=== PATIENT | female | born 1970 | race Caucasian/White ===

== ENCOUNTER → 2017-02-15 | Outpatient (CLI) | payer BC ==
[~2017-02-15] MED LIST: ASPIRIN E.C. 8181 MG PO; CEPHALEXIN500 M1 PO; CIPRO 500MG TA500 MG PO; KLONOPIN PO; LASIX 20MG TABL20 MG PO; NEXIUM 20MG20 MG PO; NICODERM C21 MG/PATC TD; NO HOME MEDICATIONS; NORCO 325 MG-51 TAB PO; NORCO 325 MG-7.1 TAB PO; NORVASC 10MG10 MG PO; PERCOCET 325 MG1 TA2 PO; PHENERGAN 25 TA25 MG PO; TOPIRAMATE; TRILEPTAL; VENTOLIN0.09 MG IH; WELLBUTRIN PO; ZITHROMAX TRI-500 MG PO; ZITHROMAX Z PA250 MG PO; ZOFRAN 4MG T4 MG/TAB PO; [UNRECOGNIZED DRUG - REMARK]; [UNRECOGNIZED DRUG - REMARK]
== END ==
LOC: COL.VAS 14:41
DX: I36.1 Nonrheumatic tricuspid (valve) insufficiency (principal); I51.7 Cardiomegaly

== ENCOUNTER 2018-08-12 08:09 | Emergency (ER) | payer MEDICAID ==
[~2018-08-12] VITALS: Ht 167.6 cm; Wt 75.0 kg
[2018-08-12 08:15] VITALS: TEMP 98.6
[2018-08-12 08:38] LABS: BASO # 0.1 (0.0-0.2); BASO % 0.5 % (0.0-2.0); EOS # 0.1 (0.0-0.7); EOS % 0.6 % (0-4.0); GRAN # 8.6 (1.4-6.5); GRAN % 74.4 % (42.2-75.2); HEMATOCRIT 40.8 % (37.0-47.0); HEMOGLOBIN 13.8 g/dl (12.5-16.0); LYMPH # 2.1 (1.2-3.4); LYMPH % 18.5 % (20.0-51.0); MEAN CELL VOLUME 99 fl (80.0-100.0); MEAN CORPUSCULAR HEMOGLOBIN 33 pg (27.0-31.0); MEAN CORPUSCULAR HGB CONC 34 g/dl (33.0-37.0); MEAN PLATELET VOLUME 11.7 fl (7.4-10.4); MONO # 0.7 (0.1-0.6); MONO % 5.7 % (1.7-9.3); PLATELET COUNT 190 K/mm3 (130-400); RED BLOOD COUNT 4.13 M/mm3 (4.10-5.30); REDCELL DISTRIBUTION WIDTH-CV 13.8 % (11.5-14.5)
[2018-08-12] MEDS ORDERED: LETAIRIS10 MG PO (08:40)
[2018-08-12] MEDS ORDERED: PRIL40 PO (08:40)
[2018-08-12] MEDS ORDERED: ADCIRCA20 MG PO (08:41)
[2018-08-12 08:42] LABS: PROTHROMBIN TIME 10.8 SECONDS (9.7-12.8)
[2018-08-12 08:45] LABS: PARTIAL THROMBOPLASTIN TIME 24.2 SECONDS (26.0-37.0)
[2018-08-12 10:15] VITALS: BP 103/62; PULSE 87
[2018-08-12 10:15] LABS: ALANINE AMINOTRANSFERASE 20 U/L (9-52); ALBUMIN 3.8 gm/dL (3.5-5.0); ALKALINE PHOSPHATASE 79 U/L (50-136); ANION GAP 3 mmol/L (7-16); AST,SGOT 25 U/L (15-37); BILIRUBIN,TOTAL 0.8 mg/dL (0.0-1.0); BLOOD UREA NITROGEN 14 mg/dL (7-17); CALCIUM 8.8 mg/dL (8.4-10.2); CARBON DIOXIDE 27 mmol/L (22-30); CHLORIDE 108 mmol/L (98-107); CREATININE, serum 0.71 mg/dL (0.52-1.25); GLUCOSE 95 mg/dL (74-106); SODIUM 139 mmol/L (137-145); TOTAL PROTEIN 6.9 gm/dL (6.4-8.2)
[2018-08-12 10:16] LABS: C-REACTIVE PROTEIN < 0.5 mg/dL (0.0-0.9)
[2018-08-12 10:23] LABS: TROPONIN-I 0.017 ng/mL (0.000-0.034)
[2018-08-12] MEDS ORDERED: OXYGEN MC (10:38)
== END 2018-08-12 10:15 | disposition short-term general hospital (02) ==
LOC: COL.ER 08:09
PROVIDERS: Family Medicine
DX: R07.89 Other chest pain (principal); F17.210 Nicotine dependence, cigarettes, uncomplicated; Z79.82 Long term (current) use of aspirin
CPT/HCPCS: J1644; J2270; J2405

== ENCOUNTER → 2018-09-30 | Outpatient (CLI) | payer MEDICAID | LOC: MC.RAD 10:53 | DX: Z12.31 Encounter for screening mammogram for malignant neoplasm of breast (principal); N63.0 Unspecified lump in unspecified breast ==

== ENCOUNTER → 2019-04-09 | Outpatient (CLI) | payer MEDICAID ==
[~2019-04-09] MED LIST changes: +ADCIRCA20 MG PO; +LETAIRIS10 MG PO; +OXYGEN MC; +PRIL40 PO
== END ==
LOC: COL.RAD 06:16
DX: R11.0 Nausea (principal)
CPT/HCPCS: A9541

== ENCOUNTER 2019-05-30 08:48 | Emergency (ER) | payer MEDICAID ==
[~2019-05-30] VITALS: Ht 170.2 cm; Wt 85.9 kg
[2019-05-30 08:52] VITALS: TEMP 97.8
[2019-05-30 09:52] LABS: ALANINE AMINOTRANSFERASE 14 U/L (9-52); ALBUMIN 3.6 gm/dL (3.5-5.0); ALKALINE PHOSPHATASE 61 U/L (50-136); ANION GAP 8 mmol/L (7-16); AST,SGOT 21 U/L (15-37); BILIRUBIN,TOTAL 0.8 mg/dL (0.0-1.0); BLOOD UREA NITROGEN 12 mg/dL (7-17); CALCIUM 8.3 mg/dL (8.4-10.2); CARBON DIOXIDE 21 mmol/L (22-30); CHLORIDE 111 mmol/L (98-107); CREATININE, serum 0.69 (0.52-1.25); GLUCOSE 93 mg/dL (74-106); POTASSIUM 3.7 mmol/L (3.4-5.0); SODIUM 139 mmol/L (137-145); TOTAL PROTEIN 6.6 gm/dL (6.4-8.2)
[2019-05-30 10:02] LABS: C-REACTIVE PROTEIN < 0.5 mg/dL (0.0-0.9)
[2019-05-30 10:56] LABS: BASO % 0.5 % (0.0-2.0); EOS # 0.1 (0.0-0.7); EOS % 1.7 % (0-4.0); GRAN # 4.4 (1.4-6.5); GRAN % 68.2 % (42.2-75.2); HEMOGLOBIN 11.3 g/dl (12.5-16.0); LYMPH # 1.4 (1.2-3.4); LYMPH % 22.3 % (20.0-51.0); MEAN CELL VOLUME 100 fl (80.0-100.0); MEAN CORPUSCULAR HEMOGLOBIN 34 pg (27.0-31.0); MEAN CORPUSCULAR HGB CONC 34 g/dl (33.0-37.0); MEAN PLATELET VOLUME 12.2 fl (7.4-10.4); MONO # 0.5 (0.1-0.6); PLATELET COUNT 112 K/mm3 (130-400); RED BLOOD COUNT 3.35 M/mm3 (4.10-5.30); REDCELL DISTRIBUTION WIDTH-CV 13.6 % (11.5-14.5)
[2019-05-30 11:04] LABS: HEMATOCRIT 33.5 % (37.0-47.0)
[2019-05-30 12:30] VITALS: BP 1063/64; PULSE 85
== END 2019-05-30 12:30 | disposition home or self-care (01) ==
LOC: COL.ER 08:48
PROVIDERS: Family Medicine; Physician Assistant
DX: K91.840 Postprocedural hemorrhage of a digestive system organ or structure following a digestive system procedure (principal); F17.210 Nicotine dependence, cigarettes, uncomplicated; F31.9 Bipolar disorder, unspecified
CPT/HCPCS: C9113; J7030

== ENCOUNTER → 2023-11-13 | Outpatient (CLI) | payer MEDICAID ==
[~2023-11-13] MED LIST changes: +BACTROBAN 22GM22 GM NAS
== END ==
LOC: COL.RAD 12:02
DX: M50.321 Other cervical disc degeneration at C4-C5 level (principal); M50.323 Other cervical disc degeneration at C6-C7 level; M47.816 Spondylosis without myelopathy or radiculopathy, lumbar region; Z98.1 Arthrodesis status